=== PATIENT | male | born 1990 | race Two or more races ===

== ENCOUNTER 2016-12-25 17:24 | Emergency (ER) | payer OTHER ==
[2016-12-25] MEDS ORDERED: DIPHTH,PERTUSS(ACELL),TET VAC 0.5 ML VIAL IM V ONE (18:25)
== END 2016-12-25 18:42 | disposition home or self-care (01) ==
LOC: ED 17:24
DX: S61.210A Laceration without foreign body of right index finger without damage to nail, initial encounter (principal); S61.211A Laceration without foreign body of left index finger without damage to nail, initial encounter; Z23 Encounter for immunization; W45.8XXA Other foreign body or object entering through skin, initial encounter; W22.8XXA Striking against or struck by other objects, initial encounter; Y92.9 Unspecified place or not applicable